=== PATIENT | female | born 1975 | race Two or more races ===

== ENCOUNTER 2024-12-05 21:12 | Emergency (ER) | payer OTHER ==
[~2024-12-05] VITALS: Ht 157.5 cm; Wt 122.0 kg
[2024-12-05] MEDS ORDERED: COZAAR25 MG PO (22:12)
[2024-12-05] MEDS ORDERED: PROTONIX40 M1 PO (22:12)
[2024-12-05] MEDS ORDERED: ATORVASTATIN CA10 MG PO (22:13)
[2024-12-05] MEDS ORDERED: ACETAMINOPHEN 500 MG GEL..CAP PO ONE (22:16)
[2024-12-05] MEDS ORDERED: 0.9 % SODIUM CHLORIDE 1,000 ML IV STA (23:14)
[2024-12-05] MEDS ORDERED: HYOSCYAMINE SULFATE 0.125 MG TAB.SUBL SL STA (23:15)
[2024-12-05] MEDS ORDERED: FAMOtidine 10 MG/ML (4ML VIAL) IV PUSH STA (23:16)
[2024-12-05] MEDS ORDERED: KETOROLAC TROMETHAMINE 30 MG VIAL IV STA (23:16)
[2024-12-05] MEDS ORDERED: FAMOTIDINE/PF 20 MG/2 ML VIAL ONE (23:33)
[2024-12-05] MEDS ORDERED: KETOROLAC TROMETHAMINE 30 MG VIAL ONE (23:33)
[2024-12-05] MEDS ORDERED: HYOSCYAMINE SULFATE 0.125 MG TAB.SUBL ONE (23:33)
[2024-12-06 00:20] LABS: HEMATOCRIT 38.9 % (36.0-45.00); HEMOGLOBIN 12.4 g/dL (12.0-15.00); MEAN CELL VOLUME 70.8 fL (80.00-100.00); MEAN CORPUSCULAR HEMOGLOBIN 22.6 pg (27.00-32.0); PLATELET COUNT 285 K/uL (150-450); RED BLOOD COUNT 5.49 M/uL (4.00-6.00); RED CELL DISTRIBUTION WIDTH 18.9 % (11.5-14.5)
[2024-12-06 00:28] LABS: INR 1.04; PARTIAL THROMBOPLASTIN TIME 30.1 SECONDS (22.0-34.0); PROTHROMBIN TIME 11.3 SECONDS (9.0-11.5)
[2024-12-06 00:33] LABS: ALBUMIN 3.3 gm/dL (3.4-5.0); BILIRUBIN TOTAL 0.28 mg/dL (0.3-1.2); CALCIUM 8.9 mg/dL (8.5-10.1); CREATININE SERUM 0.81 mg/dL (0.55-1.02); GFR 74.54; GLOBULINA 3.8 G/DL (2.4-3.5); POTASSIUM 3.87 mEq/L (3.5-5.1); TOTAL PROTEIN 7.1 gm/dL (6.4-8.2)
[2024-12-06] MEDS ORDERED: PEPCID AC20 MG PO (02:41)
== END 2024-12-06 02:47 | disposition home or self-care (01) ==
LOC: ER 21:14
DX: R10.11 Right upper quadrant pain (principal); R16.0 Hepatomegaly, not elsewhere classified; K76.0 Fatty (change of) liver, not elsewhere classified; Z88.8 Allergy status to other drugs, medicaments and biological substances